=== PATIENT | female | born 1970 | race Caucasian/White ===

== ENCOUNTER 2018-01-02 08:14 | Day surgery (SDC) | payer OTHER ==
[~2018-01-02 08:14] MED LIST: Acetaminophen/HYDROcodone 325-5 MG Tab PO PRN; Bupivacaine 0.25%/EPINEPHrine 1:200,000 10 ML SDV INJECT ONE; Bupivacaine 25%/EPINEPHrine/PF 30 ML ONE; Lactated Ringers 1,000 ML IV SCH; ceFAZolin 2 GM in Premix Bag 1 BAG IV ONE
[2018-01-02] MEDS ORDERED: Dexamethasone/Tobramycin 0.1-0.3% Ophth Oint 3.5 GM Tube ONE (08:23)
--- NOTE | 2018-01-02 09:04 | PCM.PREANE ---
Preanesthetic Assessment - Anesthesia/Transfusion/Family Hx Anesthesia History: No Prior Anesthesia Family History of Anesthesia Reaction: No Transfusion History: No Prior Transfusion(s) Intubation History: Unknown - Review of Systems General: No Symptoms Pulmonary: No Symptoms Cardiovascular: No Symptoms Gastrointestinal: No Symptoms Neurological: No Symptoms Other: Reports: None - Physical Assessment O2 Sat by Pulse Oximetry: 98 Respiratory Rate: 16 Vital Signs: Last Vital Signs Temp 37.2 C 01/02/18 08:39 Pulse 71 01/02/18 08:39 Resp 16 01/02/18 08:39 BP 131/73 01/02/18 08:39 Pulse Ox 98 01/02/18 08:39 Height: 1.63 m Weight: 62.142 kg ASA Class: 2 Mental Status: Alert & Oriented x3 Airway Class: Mallampati = 2 Dentition: Reports: Bridge (upper right and left and lower right) Thyro-Mental Finger Breadths: 3 Mouth Opening Finger Breadths: 3 ROM/Head Extension: Full Lungs: Clear to Auscultation, Normal Respiratory Effort Cardiovascular: Regular Rate, Regular Rhythm - Lab Values: Laboratory Last Values Urine HCG, Qual NEGATIVE (NEGATIVE) 01/02/18 08:30 - Allergies Allergies/Adverse Reactions: Allergies Allergy/AdvReac Type Severity Reaction Status Date / Time No Known Allergies Allergy Verified 01/01/18 09:20 - Blood Blood Available: No - Anesthesia Plan Pre-Op Medication Ordered: None - Acknowledgements Anesthesia Type Planned: General Anesthesia Pt an Appropriate Candidate for the Planned Anesthesia: Yes Alternatives and Risks of Anesthesia Discussed w Pt/Guardian: Yes Pt/Guardian Understands and Agrees with Anesthesia Plan: Yes PreAnesthesia Questionnaire - Past Health History Medical/Surgical History: Denies Medical/Surgical History HEENT History: Reports: Other (See Below) Other HEENT History: wears glasses Psychiatric History: Reports: Anxiety Oncologic (Cancer) History: Reports: Other (See Below) Other Oncologic History: currently skin cancer to eye lids - Past Surgical History Head Surgeries/Procedures: Reports: None - SUBSTANCE USE Smoking Status *Q: Former Smoker (quit 3-4 years ago- was social smoker only) Tobacco Use Within Last Twelve Months: No Days Per Week of Alcohol Use: 2 Number of Drinks Per Day: 1 Total Drinks Per Week: 2 Recreational Drug Use History: No - HOME MEDS Home Medications: Home Meds . [No Known Home Meds] 03/14/15 [History] - CURRENT (IN HOUSE) MEDS Current Meds: Current Medications Hydrocodone Bitart/Acetaminophen ([place] 325-5 Mg) 1 tab PO Q4H PRN PRN Reason: Pain Lactated Ringer's (Ringers, Lactated) 1,000 mls @ 125 mls/hr IV ASDIRECTED ASHLEY Last Admin: 01/02/18 08:40 Dose: 125 mls/hr Discontinued Medications Bupivacaine HCl/Epinephrine Bitart (Marcaine 0.25%/Epinephrine 1:200,000) 10 ml INJECT ONETIME ONE Stop: 01/02/18 08:01 Cefazolin Sodium/Dextrose 2 gm (/ Premix) 50 mls @ 100 mls/hr IV ONETIME ONE Stop: 01/02/18 08:29 Bupivacaine HCl/Epinephrine Bitart (Sensorc Mpf 0.25%-Epi [id number]) Confirm Administered Dose 30 mls @ as directed .ROUTE .STK-MED ONE Stop: 01/02/18 07:44 Tobramycin/Dexamethasone (Tobradex Ophth Oint) Confirm Administered Dose 3.5 gm .ROUTE .STK-MED ONE Stop: 01/02/18 08:24
[2018-01-02] MEDS ORDERED: Lidocaine 2% 5 ML SDV ONE (09:08)
[2018-01-02] MEDS ORDERED: Propofol 200 MG/20 ML SDV ONE (09:09)
[2018-01-02] MEDS ORDERED: fentaNYL 250 MCG/5 ML SDV ONE (09:09)
[2018-01-02] MEDS ORDERED: Midazolam 1 MG/ML 2 ML SDV ONE (09:09)
[2018-01-02] MEDS ORDERED: Rocuronium 10 MG/ML 10 ML Syringe ONE (09:09)
[2018-01-02] MEDS ORDERED: ceFAZolin/Dextrose,Iso-Osmotic 2 GM/50 ML Duplex Bag IV ONE (09:16)
[2018-01-02] MEDS ORDERED: fentaNYL 100 MCG/2 ML SDV IVPUSH PRN (09:56)
--- NOTE | 2018-01-02 12:01 | PCM.OPNOTE ---
- General Post-Op/Procedure Note Date of Surgery/Procedure: 01/02/18 Operative Procedure(s): 1. excision of left eyelid basal cell 7cm x 2cm with complex 7cm closure. 2. excison of right upper eyelid basal cell 3x2cm with simple 3cm closure Pre Op Diagnosis: basal cell bilateral upper eyelids Post-Op Diagnosis: Same Anesthesia Technique: General LMA, Local Primary Surgeon: Yamile Reynoso Dehydrating Press Operator: Tg Shepard Complications: None Condition: Good Free Text/Narrative:: Intake & Output 01/01/18 01/02/18 01/02/18 23:59 07:59 15:59 Intake Total 1750 Balance 1750
[2018-01-02 12:59] VITALS: BP 108/70
--- NOTE | 2018-01-16 15:07 | OR ---
SURGEON: TC MAN MD DATE OF PROCEDURE: 01/02/2018 PREOPERATIVE DIAGNOSIS: Basal cell carcinoma of the bilateral upper eyelids. POSTOPERATIVE DIAGNOSIS: Basal cell carcinoma of the bilateral upper eyelids. PROCEDURES: 1. Excision of left upper eyelid basal cell carcinoma, 7 x 2 cm with complex 7 cm closure involving undermining and slight tissue rearrangement. 2. Excision of right upper eyelid basal cell 3 x 2 cm with a simple 3 cm closure. OPERATOR: None. ANESTHESIA: General LMA with local. INDICATIONS: Ms. Ortiz is a 47-year-old female with a very large left eyelid obvious skin cancer. Risks and benefits of removal were discussed with her. We will plan to do this in a blepharoplasty style incision, but unfortunately, it will be quite large and would require slight tissue rearrangement in order to get it closed in a modified Tenzel flap. The risks and benefits of this were discussed with her and she was in agreement to proceed. In addition, she has a small lesion on the right upper eyelid and we will also plan to excise that in a slightly exaggerated fashion for asymmetry with the left side. Risks and benefits were discussed with her and she was in agreement to proceed. Risks were including, but not limited to, bleeding, infection, damage to underlying or overlying structures, possible need for future interventions, possible scarring. PROCEDURE IN DETAIL: After informed consent was obtained and placed on the chart, the patient was brought to the operating theater and laid in supine position. After adequate general LMA and local anesthesia was obtained, the area was prepped and draped and a time-out was completed to confirm side and site. Attention was then paid to excision of the left eyelid basal cell for a total length of 7 x 2 cm and meticulous hemostasis was obtained. This was sent for frozen sections and margins were confirmed as negative. Attention was then paid to a slight amount of undermining in order to allow advancement of the lateral upper flap for appropriate closure. Once this was undermined and meticulous hemostasis was obtained, the area was closed with deep 5-0 Monocryl stitches and a running 6-0 Prolene for the skin. Once adequately closed, attention was then paid to the right upper eyelid and the lesion was excised in elliptical fashion for a total length of 3 x 2 cm. This came back with a basal cell with margins negative as well, and meticulous hemostasis was obtained. The incision was carried somewhat medial and laterally with minor amount of tissue removal to allow symmetry to the opposite side. Closure was undertaken with deep 3-0 Monocryl stitches and a running 6-0 Prolene for the skin. The patient tolerated this well. The ends were Steri-Stripped in place with Mastisol. FOLLOWUP INSTRUCTIONS: The patient will see us in 7-10 days sooner if any problems, questions, or concerns. She was given a prescription for pain control. KATIA / SHASHI /[id number]
== END 2018-01-02 12:35 | disposition home or self-care (01) ==
LOC: MW.SDS 08:14
PROVIDERS: ATTEND Plastic Surgery
DX: C44.119 Basal cell carcinoma of skin of left eyelid, including canthus (principal); C44.112 Basal cell carcinoma of skin of right eyelid, including canthus; F41.9 Anxiety disorder, unspecified; Z87.891 Personal history of nicotine dependence; Z79.899 Other long term (current) drug therapy; Z80.8 Family history of malignant neoplasm of other organs or systems
CPT/HCPCS: 11643; 11646; 13152; 81025; 88305; 88331; 88332; A9270; J0690; J2250; J3010; J7120; 00300; J2704